=== PATIENT | male | born 1950 | race Asian ===

== ENCOUNTER 2016-11-07 17:02 | Emergency (ER) | payer OTHER ==
[~2016-11-07] VITALS: Ht 172.7 cm; Wt 73.5 kg
--- NOTE | 2016-11-07 17:46 | ED HEAD/FACIAL INJ COMPLAINT ---
History of Present Illness General Chief Complaint: Facial or Head Injury Stated Complaint: FELL OFF LADDER 5 DAYS AGO, STRUCK HEAD, ?LOC Source: patient Exam Limitations: no limitations Triage Note: 65 YEAR OLD MALE TO ER WITH HIS SON, PT STATES THAT HE FELL 4 FEET OFF LADDER ON MONDAY AND HIT HIS HEAD ON STEEL BEAM, POSITIVE LOC, PT COMES TODAY WITH SON DUE TO AMS AND BRUISING BEHIND HIS R EAR THAT STARTED YESTERDAY. Triage Nurses Notes Reviewed? yes HPI: Patient is a 65-year-old male brought in by his family for evaluation of head injury. Patient reportedly fell off a ladder approximately 2-3 feet off the ground 5 days ago. Patient had a loss of consciousness, the patient estimates for approximately 10 minutes. Patient had a right parietal scalp hematoma. Over the past couple of days family reports that the bruising has extended to behind his right ear. The swelling of the scalp has gradually improved. Family reports that patient has had mild episodes of confusion intermittently since the fall. Patient denies any confusion. Family reports positive vomiting 1-2 days after the injury which patient denies. Denies neck pain, blurred vision, extremity numbness, extremity weakness. (KESHAV BATISTA) Vital Signs & Intake/Output Vital Signs & Intake/Output Vital Signs Date Time Temp Pulse Resp B/P Pulse O2 O2 Flow FiO2 Ox Delivery Rate 11/07 1921 97.6 87 18 160/92 98 Room Air 11/07 1830 98 Room Air 11/07 1720 98.0 100 18 158/102 98 Room Air Allergies Coded Allergies: No Known Allergies (11/07/16) Reconcile Medications Losartan/Hydrochlorothiazide (Losartan-Hctz 100-25 MG Tab) 100 MG-25 MG TABLET 1 TAB PO DAILY BP (Reported) (UMA TORRES,CHRIS Dawkins) Past History Travel History Traveled to [place] past 21 day No Medical History Any Pertinent Medical History? see below for history Neurological: NONE EENT: NONE Cardiovascular: hypertension Respiratory: NONE Gastrointestinal: NONE Hepatic: NONE Renal: NONE Musculoskeletal: NONE Psychiatric: NONE Endocrine: NONE Blood Disorders: NONE Cancer(s): NONE LPN PER DIEM/Reproductive: NONE Surgical History Surgical History: non-contributory Psychosocial History What is your primary language Bengali Tobacco Use: Never used ETOH Use: denies use Illicit Drug Use: denies illicit drug use Family History Hx Contributory? No (KESHAV BATISTA) Review of Systems Review of Systems Constitutional: Denies: chills, fever. EENTM: Denies: blurred vision. Respiratory: Denies: cough, short of breath. Cardiovascular: Denies: chest pain. GI: Reports: vomiting. Denies: abdominal pain, nausea. Genitourinary: Reports: no symptoms. Musculoskeletal: Denies: back pain, neck pain. Skin: Denies: rash. Neurological/Psychological: Reports: see HPI. Hematologic/Endocrine: Reports: bruising. Denies: bleeding. Immunologic/Allergic: Denies: splenectomy. (KESHAV BATISTA) Physical Exam Physical Exam General Appearance: well developed/nourished, alert, awake Head: hematoma right parietal scalp. ecchymosis posterior to right ear Eyes: Bilateral: normal appearance, PERRL, EOMI. Ears, Nose, Throat: no fluid in external auditory canals, normal tympanic membranes. mild tenderness posterior to right ear with ecchymosis Neck: normal inspection, supple, full range of motion, no midline tenderness, no paraspinal tenderness Respiratory: normal breath sounds, chest non-tender, no respiratory distress, lungs clear Cardiovascular: regular rate/rhythm Gastrointestinal: soft, non-tender Back: normal inspection, normal range of motion, no vertebral tenderness Extremities: normal inspection, normal capillary refill, normal range of motion, no edema, no tenderness or signs of trauma Psychiatric: awake, alert, oriented x 3 Cranial Nerves: normal hearing, normal speech, PERRL Coordination/Gait: normal finger to nose Motor/Sensory: no motor/sensory deficits Skin: warm/dry (KESHAV BATISTA) Progress Differential Diagnosis: ICH, skull fracture, scalp hematoma, concussion Plan of Care: Orders Procedure Date/time Status CT CERV SPINE WO IV CONTRAST 11/[address] HEAD WO IV CONTRAST 11/07 1726 Active 1814: Discussed with Dr. Pierre. 1857: Discussed results with family. 1899: Discussed with Dr. Villanueva: very small subdural, subacute, patient has essentially gone past the observation period. Can have patient follow up outpatient, in 1 week. If increasing headaches, any focal neurologic deficits then should return to the emergency Department immediately. Have patient avoid strenuous activity or acclimating any heights. Plan was discussed with patient and his family, they're agreeable to the plan. No acute neurologic abnormalities on exam. Discussed with the patient and his family signs and symptoms to monitor for. (CRISTINA MCDANIELS,KESHAV) Diagnostic Imaging: Viewed by Me: CT Scan. Discussed w/RAD: CT Scan. Radiology Impression: PATIENT: EDER LANCASTER PRESENT AGE: 65 PATIENT ACCOUNT NO: [id number] : 49 LOCATION: [facility] ORDERING PHYSICIAN: KESHAV MCDANIELS SERVICE DATE: 11/07/16 EXAM TYPE: CAT - CT CERV SPINE WO IV CONTRAST; CT HEAD WO IV CONTRAST EXAMINATION: NONCONTRAST HEAD CT NONCONTRAST CERVICAL SPINE CT INDICATION INFORMATION: Head injury, loss of consciousness COMPARISON: None TECHNIQUE: Separate noncontrast CT examinations of the head and cervical spine were performed. Coronal and sagittal images were created for each examination at the technologist workstation. DLP: 924.65 mGy-cm FINDINGS: Head: There is a small subdural collection in the high right frontoparietal region measuring approximately 4 mm in thickness in the coronal plane; the density of this collection is approximately 35 Hounsfield units, favoring a subacute hematoma. No dense subdural collection is seen to suggest an acute hematoma. There is no evidence of acute subarachnoid hemorrhage or territorial infarction. No abnormal mass-effect or midline shift is seen. Rolon to white matter differentiation is well preserved. The ventricles are normal in size. There is no abnormal attenuation within the brain parenchyma. No acute fracture is seen. There is a high right scalp hematoma. The mastoid air cells and visualized portions of the paranasal sinuses are well-aerated. Cervical spine: There is anatomic alignment of the vertebral bodies and posterior elements. Vertebral body heights are maintained. There is disc space narrowing of the lower cervical spine C5-C6 and C6-C7 with associated endplate osteophyte formation. There is left-sided facet arthropathy at C5-C6. No evidence of acute fracture. No prevertebral soft tissue swelling. Visualized portions of the lung apices are unremarkable. The thyroid gland is unremarkable. IMPRESSION: 1. Head : Small high right subdural collection measuring 4 mm thickness, the density of which favors more of a subacute hematoma rather than acute hemorrhage. Overlying scalp soft tissue swelling is noted. 2. Cervical spine: No acute findings identified. Degenerative changes of the lower cervical spine. DICTATED BY: NAVARRO CASEY MD DATE/TIME DICTATED:11/07/161820 AUTOMOBILE INSPECTOR:EDDI DATE/TIME TRANSCRIBED:11/07/161820 CONFIDENTIAL, DO NOT COPY WITHOUT APPROPRIATE AUTHORIZATION. <Electronically signed in Other Vendor System> SIGNED BY: NAVARRO CASEY MD 11/07/161841 (KESHAV BATISTA) Departure Departure Time of Disposition: 1908 Disposition: HOME OR SELF CARE Condition: Stable Clinical Impression Primary Impression: Subdural hematoma Referrals: STEPHANIE TORRES,MARIO Torres Additional Instructions: Tylenol as directed for pain. Follow up with Dr. Villanueva in 1 week for further evaluation(neurosurgeon), call in the morning for appointment. Return to the ER immediately if numbness, weakness, lethargy, severe headache, seizure activity or worsening of symptoms. Departure Forms: Customer Survey General Discharge Information (KESHAV BATISTA) PA/ADOLESCENT MEDICINE SPECIALIST Co-Sign Statement Statement: ED Attending supervision documentation- [X] I saw and evaluated the patient. I have also reviewed all the pertinent lab results and diagnostic results. I agree with the findings and the plan of care as documented in the PA's/ADOLESCENT MEDICINE SPECIALIST's documentation. [] I have reviewed the ED Record and agree with the PA's/ADOLESCENT MEDICINE SPECIALIST's documentation. [] Additions or exceptions (if any) to the PAs/ADOLESCENT MEDICINE SPECIALIST's note and plan are summarized below: [] (UMA TORRES,CHRIS Dawkins)
[2016-11-07] MEDS ORDERED: LOSARTAN-HCTZ1 EAC2 PO (18:10)
--- NOTE | 2016-11-07 18:42 | CT SCAN REPORT ---
EXAMINATION: NONCONTRAST HEAD CT NONCONTRAST CERVICAL SPINE CT INDICATION INFORMATION: Head injury, loss of consciousness COMPARISON: None TECHNIQUE: Separate noncontrast CT examinations of the head and cervical spine were performed. Coronal and sagittal images were created for each examination at the technologist workstation. DLP: 924.65 mGy-cm FINDINGS: Head: There is a small subdural collection in the high right frontoparietal region measuring approximately 4 mm in thickness in the coronal plane; the density of this collection is approximately 35 Hounsfield units, favoring a subacute hematoma. No dense subdural collection is seen to suggest an acute hematoma. There is no evidence of acute subarachnoid hemorrhage or territorial infarction. No abnormal mass-effect or midline shift is seen. Rolon to white matter differentiation is well preserved. The ventricles are normal in size. There is no abnormal attenuation within the brain parenchyma. No acute fracture is seen. There is a high right scalp hematoma. The mastoid air cells and visualized portions of the paranasal sinuses are well-aerated. Cervical spine: There is anatomic alignment of the vertebral bodies and posterior elements. Vertebral body heights are maintained. There is disc space narrowing of the lower cervical spine C5-C6 and C6-C7 with associated endplate osteophyte formation. There is left-sided facet arthropathy at C5-C6. No evidence of acute fracture. No prevertebral soft tissue swelling. Visualized portions of the lung apices are unremarkable. The thyroid gland is unremarkable. IMPRESSION: 1. Head: Small high right subdural collection measuring 4 mm thickness, the density of which favors more of a subacute hematoma rather than acute hemorrhage. Overlying scalp soft tissue swelling is noted. 2. Cervical spine: No acute findings identified. Degenerative changes of the lower cervical spine.
[2016-11-07 19:21] VITALS: BP 160/92
== END 2016-11-07 19:35 ==
LOC: ERH 17:02
DX: S06.5X1A Traumatic subdural hemorrhage with loss of consciousness of 30 minutes or less, initial encounter (principal); W11.XXXA Fall on and from ladder, initial encounter